=== PATIENT | female | born 1990 ===

== ENCOUNTER 2017-05-22 17:29 | Observation (INO) | payer SELFPAY ==
[2017-05-22] MEDS ORDERED: Sodium Chloride 0.9% 2,000 ML IV STA (17:43)
--- NOTE | 2017-05-22 17:46 | ED PDOC ---
HPI: Abdomen Time Seen by Provider: 05/22/17 17:44 Chief Complaint (Nursing): GI Problem Chief Complaint (Provider): abdominal pain/vomiting History Per: Patient (26 y/o female here for vomiting/diarrhea multiple episodes after eating lunch. Denies any fever/chills/URI/cough. Denies any abdominal surgeries. Notes moderate abdominal tenderness.) Past Medical History Reviewed: Historical Data, Nursing Documentation, Vital Signs Vital Signs: Last Vital Signs Temp 98.4 F 05/22/17 19:19 Pulse 89 05/22/17 19:19 Resp 20 05/22/17 19:19 BP 103/51 L 05/22/17 19:19 Pulse Ox 99 05/22/17 19:30 - Family History Family History: States: No Known Family Hx - Allergies Allergies/Adverse Reactions: Allergies Allergy/AdvReac Type Severity Reaction Status Date / Time No Known Allergies Allergy Verified 05/22/17 17:30 Review of Systems ROS Statement: Except As Marked, All Systems Reviewed And Found Negative Gastrointestinal: Positive for: Vomiting, Abdominal Pain, Diarrhea Physical Exam - Reviewed Nursing Documentation Reviewed: Yes Vital Signs Reviewed: Yes - Physical Exam Appears: Positive for: Well, Non-toxic, No Acute Distress Head Exam: Positive for: ATRAUMATIC, NORMAL INSPECTION, NORMOCEPHALIC Skin: Positive for: Normal Color, Warm, DRY Eye Exam: Positive for: EOMI, Normal appearance, PERRL ENT: Positive for: Normal ENT Inspection Neck: Positive for: Normal, Painless ROM Cardiovascular/Chest: Positive for: Regular Rate, Rhythm Respiratory: Positive for: CNT, Normal Breath Sounds Gastrointestinal/Abdominal: Positive for: Normal Exam, Bowel Sounds, Soft, Tenderness (generalized abdominal tenderness noted.) Back: Positive for: Normal Inspection Extremity: Positive for: Normal ROM Neurologic/Psych: Positive for: Alert, Oriented - Laboratory Results Result Diagrams: 05/22/17 18:00 05/22/17 18:00 - ECG O2 Sat by Pulse Oximetry: 99 - Progress ED Course And Treament: NS 2 LITERS ORDERED ZOFRAN 8 MG IV X 1 DOSE PEPCID 20 MG IV ED OBSERVATION Date of observation admission: 05/22/17 Time of observation admission: 17:30 - Observation admission statement Patient is being placed in observation because:: abdominal pain possible appendicitis - Goals of Observation Goals of observation are:: Hydration evaluate source of abdominal pain Manage pain - Progress Note Progress Note: 05/22/17 18:41 Zofran 8 mg iv pepcid 20 mg iv x 1 dose NS 2 liter wide open Patient noted improved with regards to vomiting. Abdomen re-examined. Moderate lower abdominal pain noted. CT abd/pelvis ordered. wbc noted elevated. 05/22/17 18:43 potassium noted 2.9 KRUN x 3 ordered bandemia noted. venous blood gas pt/ptt/type and screen ordered Disposition - Clinical Impression Clinical Impression: Abdominal pain - Patient ED Disposition Is Patient to be Admitted: Transfer of Care - Disposition Disposition: Transfer of Care Disposition Time: 20:00 Condition: FAIR Forms: [employer] ([place]) Patient Signed Over To: Tori Villarreal Handoff Comments: ct abd/pelvis/ magnesium level/ venous blood gas
[2017-05-22 18:28] LABS: BASO % 0.1 % (0.0-2.0); EOS % 0.1 % (0.0-4.0); HEMATOCRIT 45.8 % (34.0-47.0); LYMPH % 7.1 % (20.0-40.0); MEAN CELL VOLUME 86.8 fl (81.0-99.0); MEAN CORPUSCULAR HEMOGLOBIN 28.4 pg (27.0-31.0); MEAN CORPUSCULAR HGB CONC 32.7 g/dL (33.0-37.0); MEAN PLATELET VOLUME 9.7 fl (7.2-11.7); MONO # 0.3 K/uL (0.0-0.8); NEUT # 12.9 K/uL (1.8-7.0); NEUT % 90.7 % (50.0-75.0); NRBC % 0.1 % (0.0-0.0); PLATELET COUNT 221 K/uL (130-400); RED CELL DISTRIBUTION WIDTH 14.4 % (11.5-14.5); WHITE BLOOD COUNT 14.2 K/uL (4.8-10.8)
[2017-05-22 18:38] LABS: ALB/GLOB RATIO 1.1 (1.0-2.1); ALKALINE PHOSPHATASE 144 U/L (38-126); ALT/SGPT 30 U/L (9-52); AST/SGOT 29 U/L (14-36); BILIRUBIN,TOTAL 0.5 mg/dl (0.2-1.3); BLOOD UREA NITROGEN 14 mg/dl (7-17); CALCIUM 10.5 mg/dL (8.4-10.2); CARBON DIOXIDE 17 mmol/L (22-30); CHLORIDE 104 mmol/L (98-107); GFR AFRICAN-AMERICAN > 60; GLUCOSE,RANDOM 154 mg/dL (65-105); LIPASE 148 U/L (23-300); POTASSIUM 2.9 MMOL/L (3.6-5.0); SODIUM 146 mmol/l (132-148); TOTAL PROTEIN 9.8 G/DL (6.3-8.2)
[2017-05-22 19:05] LABS: NEUTROPHIL 81 % (42-75); TOTAL CELLS COUNTED 100
[2017-05-22] MEDS: Potassium CL 10mEq/100ml 100 ML IVPB SCH ×3 (19:09→22:41)
[2017-05-22] MEDS ORDERED: Sodium Chloride 0.9% 50 ML IV ONE (19:45)
[2017-05-22] MEDS ORDERED: Iohexol 300 100 ML IJ ONE (19:45)
[2017-05-22 20:52] LABS: VENOUS BLOOD GAS BASE EXCESS -13.5 mmol/L (0.0-2.0); VENOUS BLOOD GAS PCO2 77 mmHg (40-60)
--- NOTE | 2017-05-22 21:10 | CT ---
EXAM: CT Abdomen and Pelvis With Intravenous Contrast EXAM DATE/TIME: 05/22/2017 6:38 PM CLINICAL HISTORY: 26 years old, female; Signs and symptoms; Nausea and vomiting and other: N v d; Patient HX: B/l breast cyst removal around 3 yrs ago; Additional info: R/O appendicitis. - . Lt ac 20 gauge 98 cc omnipaque. Pt was vomiting while scanning. TECHNIQUE: Axial computed tomography images of the abdomen and pelvis with intravenous contrast. All CT scans at this facility use one or more dose reduction techniques, viz.: automated exposure control; ma/kV adjustment per patient size (including targeted exams where dose is matched to indication; i.e. head); or iterative reconstruction technique. Coronal and sagittal reformatted images were created and reviewed. CONTRAST: 98 mL of OMNIPAQUE administered intravenously. COMPARISON: There are no prior studies for comparison. FINDINGS: Lower thorax: Heart size is normal. There is a hiatal hernia. Motion limits evaluation of the lung bases. There is no lobar or segmental consolidation. ABDOMEN: Liver: unremarkable Gallbladder and bile ducts: unremarkable Pancreas: unremarkable Spleen: Spleen is unremarkable. There is an accessory spleen in the left upper quadrant. Adrenals: unremarkable Kidneys and ureters: unremarkable Stomach and bowel: Stomach is incompletely distended. Rotation is normal. There is proximal small bowel wall and fold thickening. There is less pronounced distal small bowel wall and fold thickening. There is no obstruction. There is terminal ileal wall thickening. Appendix is partially distended with fluid and air. There is no wall thickening or periappendiceal inflammation. There is mild colonic wall thickening.Colon is incompletely distended which limits evaluation. Appendix: See above. PELVIS: Bladder: unremarkable Reproductive: Uterus and adnexal structures are unremarkable. ABDOMEN and PELVIS: Intraperitoneal space: There is no free air or free fluid. Bones/joints: There are no acute osseous abnormalities. Soft tissues: There is a small fat containing umbilical hernia. Vasculature: Vascular structures are unremarkable. Lymph nodes: There is no pathologic adenopathy. IMPRESSION: Enterocolitis, no CT findings of appendicitis
[2017-05-22 21:13] LABS: PARTIAL THROMBOPLASTIN TIME 27.8 Seconds (25.6-37.1)
[2017-05-22] MEDS ORDERED: metroNIDAZOLE 500mg/100ml NS 100 ML IV ONE (21:13)
[2017-05-22] MEDS ORDERED: Ciprofloxacin 200mg/100ml D5W 100 ML IVPB ONE (21:13)
[2017-05-22] MEDS ORDERED: Ciprofloxacin 400mg/200ml D5W 0 MG/0 ML BAG IVPB ONE (21:27)
[2017-05-22 21:49] LABS: RBC URINE 13 /hpf (0-3); URINE BACTERIA RARE (<OCC); URINE BILIRUBIN NEGATIVE (NEGATIVE); URINE COLOR YELLOW (YELLOW); URINE GLUCOSE (UA) NEG (Normal); URINE KETONE 20 mg/dL (NEGATIVE); URINE LEUKOCYTE ESTERASE NEG Leu/uL (Negative); URINE PROTEIN NEGATIVE (NEGATIVE); URINE UROBILINOGEN 0.2-1.0 mg/dL (0.2-1.0); WBC URINE 2 /hpf (0-5)
[2017-05-22 21:50] LABS: URINE BLOOD SMALL (NEGATIVE)
[2017-05-22 21:52] VITALS: RESP 18; O2SAT 100
[2017-05-22 22:42] LABS: ALB/GLOB RATIO 1.2 (1.0-2.1); ALKALINE PHOSPHATASE 88 U/L (38-126); ALT/SGPT 26 U/L (9-52); AST/SGOT 25 U/L (14-36); BILIRUBIN,TOTAL 0.5 mg/dl (0.2-1.3); BLOOD UREA NITROGEN 12 mg/dl (7-17); CALCIUM 8.3 mg/dL (8.4-10.2); CARBON DIOXIDE 19 mmol/L (22-30); CHLORIDE 110 mmol/L (98-107); GFR AFRICAN-AMERICAN > 60; GLUCOSE,RANDOM 96 mg/dL (65-105); POTASSIUM 3.9 MMOL/L (3.6-5.0); SODIUM 145 mmol/l (132-148); TOTAL PROTEIN 7.5 G/DL (6.3-8.2)
--- NOTE | 2017-05-22 23:25 | ED PDOC ---
- Laboratory Results Result Diagrams: 05/22/17 18:00 05/22/17 22:20 - ECG O2 Sat by Pulse Oximetry: 100 Medical Decision Making Medical Decision Making: CMP improved. Mag normal. Disposition - Clinical Impression Clinical Impression: Enteritis - POA Present On Arrival: None - Disposition Disposition: Routine/Home Disposition Time: 23:25 Condition: GOOD
[2017-05-22 23:31] VITALS: TEMP 98.7
[2017-05-22 23:32] VITALS: BP 103/61; PULSE 100
== END 2017-05-22 23:59 | disposition home or self-care (01) ==
LOC: H.ER 17:29 → H.EROBSV 18:39
PROVIDERS: ADMIT Emergency Medicine; ATTEND Emergency Medicine
DX: K52.9 Noninfective gastroenteritis and colitis, unspecified (principal)
CPT/HCPCS: 74177; 80053; 81003; 82803; 83690; 83735; 84702; 85025; 85610; 85730; 86850; 86900; 96374; 96375; 99285; G0378; J0744; J2405; J3480; J7040; Q9967